=== PATIENT | male | born 1990 | race Caucasian/White ===

== ENCOUNTER → 2019-11-30 | Outpatient (CLI) | payer OTHER ==
--- NOTE | 2019-12-01 17:18 | Pulmonary Function Test ---
Pulmonary Function Test Date of Procedure:: 11/30/19 - Received 12/01/2019 INDICATION:: Dyspnea Referring Provider: Flex Cardona MD Caddymaster: Татьяна Sullivan BUSINESS INVESTOR, JR. SYSTEMS ADMINISTRATOR - Report Spirometry: Spirometry: pre-FVC: 6.70 L 95% post-FVC: 7.03 L 100% pre-FEV:1 4.98 L 85% post-FEV1: 5.62 L 97% pre-FEV1/FVC %:[74] post-FEV1/FVC%: 80 predicted: 84 [id number]%: 4.05 L 69% [id number]%: 5.55 L 94% Impression: Minimal obstructive defect is inferred by the decreased flow at the FEF 25-75% mild response to bronchodilator therapy
== END ==
LOC: RT 11:22
PROVIDERS: ATTEND Student in an Organized Health Care Education/Training Program
DX: R06.00 Dyspnea, unspecified (principal); R55 Syncope and collapse; F17.210 Nicotine dependence, cigarettes, uncomplicated
CPT/HCPCS: 94060